=== PATIENT | female | born 1965 | race Native Hawaiian/Other Pacific Islander ===

== ENCOUNTER 2022-12-11 17:24 | Emergency (ER) | payer BC, SELFPAY ==
[2022-12-11 17:33] VITALS: BP 179/120; PULSE 73; RESP 16; TEMP 36.9; O2SAT 96; BMI 51.8
[2022-12-11] MEDS: ONDANSETRON 2 MG/ML inj 4 MG IVP (18:15)
[2022-12-11] MEDS: 0.9 % SODIUM CHLORIDE 500 ML 500 ML 1000 ML IV (18:15)
[2022-12-11] MEDS: KETOROLAC 30 MG/ML inj IVP (18:15)
[2022-12-11 18:28] LABS: Basophils Absolute Auto 0.03 K/uL (0.00-0.30); Basophils Percent Auto 0.5 % (0.0-3.0); Eosinophils Absolute Auto 0.07 K/uL (0.00-0.50); Eosinophils Percent Auto 1.2 % (0.0-7.0); Hemoglobin* 14.4 gm/dL (12.0-16.0); Immature Granulocytes Abs Auto 0.01 K/uL (0.00-0.30); Immature Granulocytes Pct Auto 0.2 %; Lymphocytes Absolute Auto 1.39 K/uL (0.90-2.90); Lymphocytes Percent Auto 24.6 % (20-44); Mean Corpuscular HGB Conc 33 gm/dL (32-36); Mean Corpuscular Hemoglobin 28 pg (26-34); Mean Corpuscular Volume 84 fL (80-100); Monocytes Percent Auto 3.2 % (0.0-11.0); Neutrophils Absolute Auto 3.97 K/uL (1.7-7.0); Neutrophils Percent Auto 70.3 % (42.0-72.0); Platelet Count* 254 K/uL (140-440); RDW Coefficient of Variation % 13.6 % (11.5-15.5); Red Blood Count 5.23 m/uL (4.00-5.20); White Blood Count* 5.65 K/uL (4.50-11.00)
[2022-12-11 18:29] LABS: RBC Urine 0-2 (0-2); Squamous Epithelial Cell Urine Few (None-Few); WBC Urine 0-2 (0-5)
[2022-12-11 18:42] LABS: Albumin* 4.5 g/dL (3.3-5.0); Chloride* 104 mmol/L (96-114); Sodium* 140 mmol/L (135-149)
[2022-12-11 18:45] LABS: Alanine Aminotransferase* 25 U/L (4-35); Alkaline Phosphatase* 98 U/L (40-150); Aspartate Amino Transferase* 23 U/L (12-35); Bilirubin Direct* 0.2 mg/dL (0.0-0.5); Bilirubin Total* 0.6 mg/dL (0.1-1.5); Blood Urea Nitrogen* 8 mg/dL (7-30); Carbon Dioxide* 31 mmol/L (20-32); Creatinine* 0.5 mg/dL (0.5-1.5); Est. Creatinine Clearance* 87.02; Estimated Glomerular Filt Rate 108 ml/min; Glucose* 112 mg/dL (60-115); Total Protein* 7.8 g/dL (6.0-8.3)
[2022-12-11 18:49] VITALS: BP 199/124; PULSE 75; O2SAT 95
[2022-12-11 18:57] LABS: Appearance Urine Clear (Clear); Bilirubin Urine Negative (Negative); Blood Urine Negative (Negative); Color Urine Yellow (Yellow); Glucose Urine Negative (Negative); Ketones Urine Negative (Negative); Leukocyte Esterase Urine Negative (Negative); Nitrite Urine Negative (Negative); Protein Urine Negative (Negative); Urobilinogen Urine 0.2 (0.2-1.0); pH Urine 7.5 (5.0-8.5)
[2022-12-11 19:04] LABS: Slide Review Reflex No
--- NOTE | 2022-12-11 19:51 | ED.GENADULT ---
HPI - General Adult General Date Seen: 12/11/22 Chief complaint: Headache/Migraine Stated complaint: nausea, vomiting, frequent urination Time Seen by Provider: 12/11/22 17:42 Source: patient Mode of arrival: ambulatory Limitations: no limitations History of Present Illness HPI narrative: Patient is a 57-year-old female who works as a [employer] who comes in with one day of nausea, vomiting, headache. No fevers or chills. No cough or chest congestion. She takes lisinopril 10 mg daily for blood pressure and her blood pressure has been out of control today. She has had some urinary frequency without dysuria. She has not been to the doctor in close to a year. She threw up about 3 times prior to coming to the ER. She has not taken anything for her headache. Related Data Previous Rx's Medication Instructions Recorded ondansetron 8 mg disintegrating 8 mg PO TID PRN nausea and 12/11/22 tablet vomiting #12 tabs Allergies Allergy/AdvReac Type Severity Reaction Status Date / Time No Known Drug Allergies Allergy Verified 12/11/22 17:35 Review of Systems Narrative: Review of systems is outlined above otherwise noted to be negative. PFSH PFS Social History Smoking Status: Never smoker How often do you have a drink containing alcohol: never How often do you have six or more drinks on one occasion: Never AUDIT-C Alcohol total score: 0 Non-prescribed substance use: denies use Exam Narrative: Exam Narrative: Vitals noted. HEENT: Conjunctiva clear. Tympanic membranes are pearly white bilaterally. Posterior pharynx is clear without erythema or exudate. Neck is supple without adenopathy, thyromegaly, carotid bruit. Lungs: Clear to auscultation in all navar[place]. No wheezes, rales, rhonchi. Heart: Regular rate and rhythm without murmur. Abdomen: Soft and nontender. No guarding, rigidity, rebound. Bowel sounds are normal. No palpable masses. Extremities: No cyanosis or edema. Good distal pulses. Skin: No abnormalities noted of the exposed skin. Neurologic: Awake, alert, fully oriented. Neurologic exam is nonfocal. Const: Vital Signs, click to edit/add: Vital Signs - 24 hr 12/11/22 17:33 12/11/22 18:49 Temperature 98.5 F Pulse Rate [Right Pulse Oximeter] 73 75 Respiratory Rate 16 Blood Pressure [Ri ght Upper Arm] 179/120 H 199/124 H Pulse Oximetry 96 95 Oxygen Delivery Me thod Room Air Room Air Course Course Hospital Course: Patient seen and examined. Labs are ordered. IV is established. She is given 1 L of normal saline and Zofran 4 mg IV as well as Toradol 30 mg IV. Reevaluation(s) Reevaluation #1: CBC, BMP, UA are all normal. Her headache and nausea have resolved. She is given lisinopril 20 mg orally for systolic pressure of about 200. Follow-up blood pressure was down around 150. Vital Signs Vital signs: Initial Vital Signs Temperature 98.5 F 12/11/22 17:33 Temperature Source Temporal Artery Scan 12/11/22 17:33 Pulse Rate 73 12/11/22 17:33 Pulse Rhythm Regular 12/11/22 17:33 Pulse Strength 3+ Normal 12/11/22 17:33 Respiratory Rate 16 12/11/22 17:33 Blood Pressure 179/120 H 12/11/22 17:33 Blood Pressure Mean 139 H 12/11/22 17:33 Blood Pressure Position Supine 12/11/22 17:33 Pulse Oximetry 96 12/11/22 17:33 Oxygen Delivery Method Room Air 12/11/22 17:33 Vital Signs Temperature 98.5 F 12/11/22 17:33 Pulse Rate 73 12/11/22 17:33 Respiratory Rate 16 12/11/22 17:33 Blood Pressure 179/120 H 12/11/22 17:33 Pulse Oximetry 96 12/11/22 17:33 Oxygen Delivery Method Room Air 12/11/22 17:33 Temperature 98.5 F 12/11/22 17:33 Pulse Rate 75 12/11/22 18:49 Respiratory Rate 16 12/11/22 17:33 Blood Pressure 199/124 H 12/11/22 18:49 Pulse Oximetry 95 12/11/22 18:49 Oxygen Delivery Method Room Air 12/11/22 18:49 Medical Decision Making Lab Data Labs: Lab Results 12/11/22 12/11/22 12/11/22 Range/Units 17:42 17:50 18:10 WBC 5.65 (4.50-11.00) K/uL RBC 5.23 H (4.00-5.20) m/uL Hgb 14.4 (12.0-16.0) gm/dL Hct 44.0 (33.0-51.0) % MCV 84 (80-100) fL MCH 28 (26-34) pg MCHC 33 (32-36) gm/dL RDW Coeff of Dalia 13.6 (11.5-15.5) % Plt Count 254 (140-440) K/uL Neut % (Auto) 70.3 (42.0-72.0) % Lymph % (Auto) 24.6 (20-44) % [place] % (Auto) 3.2 (0.0-11.0) % Eos % (Auto) 1.2 (0.0-7.0) % Baso % (Auto) 0.5 (0.0-3.0) % Neut # (Auto) 3.97 (1.7-7.0) K/uL Lymph # (Auto) 1.39 (0.90-2.90) K/uL [place] # (Auto) 0.20 (0.00-0.90) K/UL Eos # (Auto) 0.07 (0.00-0.50) K/uL Baso # (Auto) 0.03 (0.00-0.30) K/uL Sodium 140 (135-149) mmol/L Potassium 4.0 (3.6-5.1) mmol/L Chloride 104 (96-114) mmol/L Carbon Dioxide 31 (20-32) mmol/L BUN 8 (7-30) mg/dL Creatinine 0.5 (0.5-1.5) mg/dL Estimated Creat Clear 87.02 Estimated GFR 108 ml/min Glucose 112 (60-115) mg/dL Calcium 9.0 (8.4-10.6) mg/dL Total Bilirubin 0.6 (0.1-1.5) mg/dL Direct Bilirubin 0.2 (0.0-0.5) mg/dL AST 23 (12-35) U/L ALT 25 (4-35) U/L Alkaline Phosphatase 98 (40-150) U/L Total Protein 7.8 (6.0-8.3) g/dL Albumin 4.5 (3.3-5.0) g/dL Urine Color Yellow (Yellow) Urine Appearance Clear (Clear) Urine pH 7.5 (5.0-8.5) Ur Specific [place] 1.020 (1.000-1.030) Urine Protein Negative (Negative) Urine Glucose (UA) Negative (Negative) Urine Ketones Negative (Negative) Urine Blood Negative (Negative) Urine Nitrite Negative (Negative) Urine Bilirubin Negative (Negative) Urine Urobilinogen 0.2 (0.2-1.0) Ur Leukocyte Esterase Negative (Negative) Urine RBC 0-2 (0-2) Urine WBC 0-2 (0-5) Ur Squamous Epith Cells Few (None-Few) Urine Bacteria None (None) Discharge Plan Discharge Clinical Impression: Headache, Hypertension, Vomiting Patient Disposition: Home, Self-Care Condition: Improved Additional Instructions: Clear liquids in frequent small amounts, advance diet slowly as tolerated. Use Tylenol or ibuprofen for headache. Use Zofran for nausea. Increase her lisinopril dose from 10 mg up to 20 mg daily. Follow-up with your new PCP in one week. Discussed adding a medication for overactive bladder. Prescriptions: New ondansetron 8 mg tablet,disintegrating 8 mg PO TID PRN (Reason: nausea and vomiting) Qty: 12 0RF Follow Up/Referrals: Provider,Not a Local [Primary Care Provider] - Stand Alone Forms: [employer] Info Instructions
[2022-12-11] MEDS: lisinopriL 20 MG TABLET PO (19:53)
[2022-12-11 19:54] VITALS: BP 164/111; PULSE 92; O2SAT 96
== END 2022-12-11 19:55 | disposition home or self-care (01) ==
PROVIDERS: Emergency Provider Family Medicine
DX: R51.9 Headache, unspecified (principal); I10 Essential (primary) hypertension; R11.10 Vomiting, unspecified
CPT/HCPCS: 36415; 80048; 80076; 81003; 81015; 85025; 96374; 96375; 99282; 99283; 99284; A9270; J1885; J2405; J7120